=== PATIENT | female | born 1950 | race Caucasian/White ===

== ENCOUNTER → 2018-05-05 | Outpatient (CLI) | payer OTHER | LOC: M.CT 13:39 | DX: Z13.6 Encounter for screening for cardiovascular disorders (principal) ==

== ENCOUNTER → 2018-08-13 | Outpatient (CLI) | payer OTHER | LOC: M.RAD 04:27 | DX: Z12.31 Encounter for screening mammogram for malignant neoplasm of breast (principal) ==

== ENCOUNTER → 2018-08-21 | Outpatient (CLI) | payer OTHER, MEDICARE | LOC: M.ULTRA 09:42 | DX: N63.14 Unspecified lump in the right breast, lower inner quadrant (principal) ==

== ENCOUNTER → 2018-08-28 | Outpatient (CLI) | payer OTHER, MEDICARE ==
--- NOTE | 2018-09-10 10:09 | PATH ---
[address] [address] PATHOLOGY RPT PROCEDURE Name: ZOYA JUÁREZ Room: [facility] ZIGGY Gayle#: [id number] Admission: 08/28/18 Date of : 52 Discharge: Report #: [id number] Path Case #: [id number] [facility] Accession Number: [id number] . 01 Material submitted: . LEFT BREAST 5:30, 6 CM FN . 01 Clinical history: . 0.75 x 0.73 x 0.90 cm, 5:30 6cm FN. . 02 Diagnosis: Left breast, 5:30, 6 cm from nipple, image guided core biopsies: - INFILTRATING DUCTAL ADENOCARCINOMA, INTERMEDIATE GRADE, SPANNING 6 MM (SEE COMMENT). [facility] . 02 Comment: Specimen type: Image guided core biopsy Tumor site: Left breast, 5:30, 6 cm from nipple Tumor quantitation: Approximately 50% of submitted tissues Histologic type: Ductal adenocarcinoma Histologic grade: Intermediate grade (II/III) Tubules, nuclei and mitoses: 2, 3, 2 LVSI: Not identified Microcalcifications: Identified Markers: Breast tumor profile pending Block: A1 . No DCIS or LCIS is identified. Breast tumor profile studies are pending on A1 and will be the subject of an addendum report. Reviewed with Dr. Roland Bhat who agrees with the diagnosis. Karla Gleason (acting [facility] breast navigator) notified at approximately 10:05 on 08/29/2018. (BEBO:pit 08/29/2018) . 02 Addendum: . Special studies report received from [facility], [address] [place] [address], [address], [place], [address], on case [id number], labeled with their number [id number], dated 09/09/2018. . Breast/Prognostic Marker Analysis . Specimen Site: Left Breast, 5:30 (Biopsy), Infiltrating Ductal Adenocarcinoma Specimen ID #: [id number] . ER (Estrogen Receptor) Present/Positive Percent: 90.00% [place] [address] PATHOLOGY RPT PROCEDURE Name: ZOYA JUÁREZ [id number] Admission: 08/28/18 Date of : 52 Discharge: Report #: [id number] Path Case #: [id number] Analysis: Manual Comments: Staining Intensity: Moderate-strong. . GA (Progesterone Receptor) Present/Positive Percent: 70.00% Analysis: Manual Comments: Staining Intensity: Variable (weak-strong). . HER2 Not Over-Expressed Score: 1+ Analysis: Manual . Ki-67 High Proliferation Percent: 40.00% Analysis: Manual . Time to Fixation (Cold Ischemic Time): 10 minutes Duration of Fixation: Not Provided Type of Fixative: 10% Neutral Buffered Formalin . at [employer]. Dakota King M.D. Pathologist . Methodology The HER2 Receptor protein expression is analyzed using the [place] HER2 rabbit monoclonal antibody (clone 4B5). This assay is used for diagnostic determination of the HER2 protein over-expression in paraffin embedded, formalin fixed breast cancer tissue on the [place] Benchmark. The specimen is processed using a polymer detection system. The membrane staining of the tumor is determined either by manual score or image analysis. This antibody is intended for in vitro diagnostic use. The score is reported as per package insert; 0, 1+, 2+, and 3+. This test is used for clinical purposes. . A rabbit monoclonal antibody (clone SP1) that recognized the Estrogen Receptor is used to perform immunohistochemistry on routinely fixed (formalin) paraffin embedded tissue on the [place] Benchmark. The specimen is processed using a polymer detection system. The percentage of stained tumor nuclei is determined either manually or by image analysis. This test is intended for in vitro diagnostic use. This test is used for clinical purposes. . A rabbit monoclonal antibody (clone 1E2) that recognized the Progesterone Receptor is used to perform [place] [address] PATHOLOGY RPT PROCEDURE Name: ZOYA JUÁREZ Room: [facility] ZIGGY Gayle#: [id number] Admission: 10/11/18 Date of : 52 Discharge: Report #: [id number] Path Case #: [id number] (formalin) paraffin embedded tissue on the [place] Benchmark. The specimen is processed using a polymer detection system. The percentage of stained tumor nuclei is determined either manually or by image analysis. This test is intended for in vitro diagnostic use. This test is used for clinical purposes. . A rabbit monoclonal antibody (clone 30-9) that recognized Ki67 is used to perform immunohistochemistry on routinely fixed (formalin) paraffin embedded tissue on the [place] Benchmark. The specimen is processed using a polymer detection system. The percentage of stained tumor nuclei is determined either manually or by image analysis. This test is intended for in vitro diagnostic use. This test is used for clinical purposes. . Intended Use: This antibody is intended for in vitro diagnostic (IVD) use. HER2 (4B5) is a rabbit monoclonal antibody intended for the semi-quantitative detection of HER2 antigen in sections of formalin-fixed, paraffin embedded normal and neoplastic tissue. . This antibody is intended for in vitro diagnostic (IVD) use. Estrogen Receptor (ER) (SP1) is a rabbit monoclonal antibody (IgG) that is intended for the qualitative detection of estrogen receptor (ER) antigen in sections of formalin-fixed, paraffin-embedded tissue. ER is a rabbit monoclonal antibody that recognizes human estrogen receptor alpha. . This antibody is intended for in vitro diagnostic (IVD) use. Progesterone Receptor (GA) (1E2) is a rabbit monoclonal antibody (IgG) that is intended for the qualitative detection of progesterone receptor (GA) antigen in sections of formalin fixed, paraffin embedded tissue. GA is a rabbit monoclonal antibody that recognizes the A and B forms of the human progesterone receptor. . This antibody is intended for in vitro diagnostic (IVD) use. Ki-67 (30-9) is a rabbit monoclonal antibody (IgG) directed against C-terminal portion of Ki-67 antigen. Staining for Ki-67 can be used to aid in assessing the proliferative activity of normal and neoplastic tissue. Ki-67 is a nuclear protein expressed in proliferating cells. During the cell cycle, the Ki-67 antigen is present in the G1, S, G2 and M phase but is absent in the G0 (quiescent phase). . . Disclaimer This Test was performed by [employer]. at [address], [address]. . [facility] [employer] is a business unit of [employer]. a wholly-owned subsidiary of [employer] [place] [address] PATHOLOGY RPT PROCEDURE Name: ZOYA JUÁREZ Room: [facility]#: [id number] Admission: 08/28/18 Date of : 52 Discharge: Report #: [id number] Path Case #: [id number] This assay has not been validated on decalcified tissues. Results should be interpreted with caution if this specimen was decalcified given the likelihood of false negativity on decalcified specimens. . Any image(s) that accompany this report is/are a counter sales representative image(s) only and should not be used to render a diagnosis. . This interpretation is contingent on the specimen and the clinical information received. . For any special tests/stains performed, known positive cells or tissues are tested with each marker and examined to ensure positivity. Positive and negative internal controls, if present, react appropriately. . This analysis is an adjunct to the evaluation of the referring physician and does not represent a final diagnosis. . The immunohistochemistry tests performed at [facility] [employer]. were validated on tissue fixed in 10% neutral buffered formalin. The performance characteristics of the tests performed on tissue processed in other fixatives is not known. . HER2 testing at [facility] is performed in compliance with the 2013 updated ASCO/CAP Clinical Practice Guidelines and Recommendations for HER2 testing in Breast Cancer. If the result is EQUIVOCAL (2+), it must be confirmed by an alternative assay such as FISH or Dual CINDI. REF: Eder ZAAR, et al. Recommendations for human epidermal growth factor receptor 2 testing in breast cancer: [place] Society of Clinical Oncology/College of [place] pathologists Clinical Practice Guideline Update. J Clin Oncol. 2013 Sep 18;31(31):3182-5434. . HER2 and ER/GA ASCO/CAP guidelines require fixation in neutral buffered formalin for a minimum of 6 and a maximum of 72 hours. Fixation times less than 6 hours may not adequately preserve cell proteins. Fixation times longer than 72 hours may cause excess cross-linking of proteins reducing the antigen available for staining. Either scenario can cause reduced staining; hence false negative results are possible and should be considered for these situations if the HER2 IHC score is less than 3+ or ER or GA is negative (no staining or <1% positive). It is recommended that specimens fixed longer than 72 hours with HER2 IHC scores less than 3+ be confirmed by HER2 FISH or Dual CINDI. The time from biopsy/excision to fixation in formalin (cold ischemic time) must be less than 1 hour. Time to fixation (cold ischemic time) greater than 1 hour should be interpreted with caution. HER2 testing, mainly HER2 by FISH, is particularly vulnerable since excessive cold ischemic time results in preferential loss of HER2 probe signals that may lead to false negative results. . SCORE STAINING PATTERN IN TUMOR CELLS [place] [address] PATHOLOGY RPT PROCEDURE Name: ZOYA JUÁREZ Room: [facility]#: [id number] Admission: 08/28/18 Date of : 52 Discharge: Report #: [id number] Path Case #: [id number] 0 No staining observed or incomplete, faint membrane staining in less than or equal to 10% of tumor cells. Negative 1+ Incomplete, faint membrane staining in greater than 10% of tumor cells. Negative 2+ Incomplete and/or weak/moderate circumferential membrane staining in greater than 10% of the invasive tumor cells or complete, circumferential, intense alternative assay staining in less than or equal to 10% of invasive tumor cells. Equivocal* *Must be confirmed by alternative assay (IHC/FISH/Dual CINDI) 3+ Intense, complete membrane staining in greater than 10% of tumor cells. Positive . A complete copy of the report is on file. . Professional and Technical services performed by [email or web address]. at [address] [place] [address]. . ([facility] 09/09/2018) . LBQ/09/09/2018 Addendum Electronically Signed by Gian Crowe MD, Pathologist . 02 Electronically signed: . Gian Crowe MD, Pathologist NPI- [id number] . 01 Gross description: . Received in formalin labeled "Zoya Juárez, left breast 5:30, 6 cm from nipple" is a 2.5 x 0.9 x 0.3 cm aggregate of donovan-yellow lobulated cores of soft tissue. The specimen is submitted entirely in cassettes A1-A3. The specimen is removed from the patient at 0917, placed in formalin at 0927, and removed from formalin at 2150 on August 28, 2018. ([facility] [place]/28/2018) SYC/SYC . 02 Pathologist provided ICD-10: C50.912 . 02 CPT . 431489 Specimen Comment: A courtesy copy of this report has been sent to Specimen Comment: [phone], , . Specimen Comment: Report sent to , DR CHILDS / DR URRUTIA Performed at: 01 [facility] [address] [place] [address] PATHOLOGY RPT PROCEDURE Name: ZOYA JUÁREZ Room: [facility] ZIGGY Gayle#: [id number] Admission: 08/28/18 Date of : 52 Discharge: Report #: [id number] Path Case #: [id number] [place] [id number] [facility] [address], [place], [place] [id number] MD Nakul Sarabia MD Phone: [phone] Performed at: 02 [facility] [address] , [place], [place] [id number] MD Gian Crowe MD Phone: [phone]
== END | disposition home or self-care (01) ==
LOC: M.ULTRA 07:53
DX: C50.912 Malignant neoplasm of unspecified site of left female breast (principal)

== ENCOUNTER → 2018-09-19 | Outpatient (CLI) | payer OTHER, MEDICARE ==
--- NOTE | 2018-09-28 18:26 | CON ---
[address] [address] CONSULTATION Name: NAINKAREEM L Room: [facility]#: [id number] Admission: 09/19/18 Attend Phys: Vinod Leo MD Discharge: Date of : 52 Report #: [id number] THIS REPORT FOR: //name// CC: Vinod Serra MD DATE OF SERVICE: 09/19/2018 [facility] REFERRING PHYSICIANS: Yaneth Oviedo DO; Dr. Kyra Mahmood; Dr. Tejinder Serra. PRIMARY SITE AND HISTOPATHOLOGY: The patient has findings consistent with at least a clinical [id number] left breast cancer. HISTORY OF PRESENT ILLNESS: The patient felt some left axillary lymphadenopathy around July or August and that resolved, and that led her to have a mammogram performed and she had a bilateral mammogram on 08/13/2018, which revealed a spiculated mass in the left breast that measured about 0.9 cm in the retroareolar region near the chest wall. The patient an ultrasound which revealed a mass that measured about 0.58 cm. x 0.53 cm. x 0.5 cm. She had a biopsy of that area on 08/28/2018 and the pathology revealed an intermediate grade infiltrating ductal carcinoma. It was 90% estrogen receptor positive, 70% progesterone receptor positive and HER2/sara negative. She also had an MRI of her breasts as well and the MRI was performed on 09/11/2018 that revealed a 1.1 cm breast cancer at the 5:30 o'clock position. She had a 0.27 cm enhancing mass at the 1-2 o'clock position. She underwent a biopsy at [facility] of the lesion in the 1-2 o'clock position. She denied having any nipple discharge. She denied having any palpable breast masses. She presents to discuss treatment options. PAST MEDICAL HISTORY AND PAST SURGICAL HISTORY: Includes hypertension. She had colon polyps removed. She has hyperlipidemia. She had a cholecystectomy in 2006 and a section in 1976. OBSTETRICAL AND GYNECOLOGIC HISTORY: Menarche at age 14, menopause at age 54 and she is 1, para 1. FAMILY HISTORY: Mother had gastric cancer and the paternal grandmother had pancreatic cancer. SOCIAL HISTORY: The patient is retired. She has 1 daughter who is aged 41. Ethanol: she rarely drinks alcohol containing drinks. Cigarettes: [place] [address] CONSULTATION Name: KAREEM GILLETTE Room: [facility]#: [id number] Admission: 09/19/18 Attend Phys: Vinod Leo MD Discharge: Date of : 52 Report #: [id number] REVIEW OF SYSTEMS: GENERAL: She denied having any fevers, chills, or drenching sweats. SKIN: She denied having any color changes, itching, bruising. LYMPH NODES: She had a palpable left axillary lymph node around July, but that has resolved. ENDOCRINE: She denied having any hot or cold intolerance. HEMATOLOGY/IMMUNOLOGY: She denied having any anemia. 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 HEAD AND NECK: She denied having any headaches or migraines. RESPIRATORY: She denied having any shortness of breath. CARDIOVASCULAR: She denied having any palpitations. GASTROINTESTINAL: She denied having any nausea. NEUROLOGIC: She denied having any focal weakness. PHYSICAL EXAMINATION: With my nurse, Kasandra Gardner, present: VITAL SIGNS: Height 5 feet 5 inches, weight 163.8 pounds, blood pressure 152/68, pulse 67 and oxygen saturation was 96% on room air. GENERAL: The patient was alert, oriented, and in no acute distress. LYMPH NODES: She had no palpable cervical, supraclavicular, or axillary lymphadenopathy. EYES: Pupils were equal, round and reactive to light and accommodation. HEAD, EARS, NOSE AND THROAT: Mouth had no visible lesions. HEART: Had a regular rate and rhythm without murmur. LUNGS: were clear to auscultation. BREASTS: Right breast had no suspicious palpable masses. Left breast had no suspicious palpable masses. ABDOMEN: Not tender. Spleen was not palpable and liver was at the costal margin. EXTREMITIES: Had no clubbing, cyanosis or edema. NEUROLOGIC: Cranial nerves II to XII were intact. Sensation was intact. The patient had 5/5 strength in her extremities. ASSESSMENT AND PLAN: The patient was told that her local treatment options include breast conservation therapy versus mastectomy. This is based on trials such as the NSABP B06 where patients with early breast cancer were randomized between total mastectomy versus lumpectomy alone versus lumpectomy and radiation therapy. At 20 years followup, there was no difference in survival between the 3 treatment groups. The addition of radiation therapy to lumpectomy reduced the local failure rate from 39% to 14%. The risks, benefits, and logistics of radiation therapy were explained to the patient in detail. Right now, she is leaning towards breast conservation therapy if that will be an option for her after her last biopsy results are known. The patient also had the option of an implant versus external beam radiation therapy discussed with her and she is leaning towards breast conservation therapy with [facility] [address] CONSULTATION Name: KAREEM GILLETTE Room: [facility].#: [id number] Admission: 09/19/18 Attend Phys: Vinod Leo MD Discharge: Date of : 52 Report #: [id number] external beam radiation therapy; if that ends up being an option for local treatment, after the most recent biopsy results are known. She was asked to schedule a follow up appointment with me in about 4-6 weeks. Thank you very much for this consult. <ELECTRONICALLY SIGNED> By: Vinod Leo MD 09/28/18 1826 [id number] Leo MD /nt
== END ==
LOC: M.RTH 03:41
DX: Z09 Encounter for follow-up examination after completed treatment for conditions other than malignant neoplasm (principal); E78.5 Hyperlipidemia, unspecified; Z85.3 Personal history of malignant neoplasm of breast

== ENCOUNTER → 2019-01-23 | Outpatient (CLI) | payer OTHER, MEDICARE | LOC: M.RAD 10:05 | DX: C50.512 Malignant neoplasm of lower-outer quadrant of left female breast (principal); Z17.0 Estrogen receptor positive status [ER+] ==

== ENCOUNTER → 2019-03-02 | Outpatient (CLI) | payer OTHER, MEDICARE | LOC: M.RAD 09:00 | DX: M85.89 Other specified disorders of bone density and structure, multiple sites (principal); C50.512 Malignant neoplasm of lower-outer quadrant of left female breast; Z17.0 Estrogen receptor positive status [ER+]; Z78.0 Asymptomatic menopausal state; Z79.811 Long term (current) use of aromatase inhibitors ==

== ENCOUNTER → 2019-07-27 | Outpatient (CLI) | payer OTHER, MEDICARE | LOC: M.RAD 10:40 | DX: C50.512 Malignant neoplasm of lower-outer quadrant of left female breast (principal); Z17.0 Estrogen receptor positive status [ER+] ==

== ENCOUNTER → 2019-08-07 | Outpatient (CLI) | payer OTHER, MEDICARE | LOC: M.RAD 10:38 | DX: M25.561 Pain in right knee (principal); M25.562 Pain in left knee; C50.512 Malignant neoplasm of lower-outer quadrant of left female breast; Z17.0 Estrogen receptor positive status [ER+] ==

== ENCOUNTER → 2020-02-04 | Outpatient (CLI) | payer OTHER, MEDICARE | LOC: M.RAD 08-06 08:49 | DX: C50.512 Malignant neoplasm of lower-outer quadrant of left female breast (principal); N60.12 Diffuse cystic mastopathy of left breast; Z17.0 Estrogen receptor positive status [ER+] ==

== ENCOUNTER → 2020-11-25 | Outpatient (CLI) | payer OTHER | LOC: M.RAD 09:39 | PROVIDERS: ATTEND Radiology Radiation Oncology | DX: Z12.31 Encounter for screening mammogram for malignant neoplasm of breast (principal) ==

== ENCOUNTER → 2021-03-03 | Outpatient (CLI) | payer OTHER | LOC: M.RAD 08:40 | PROVIDERS: ATTEND Internal Medicine Hematology & Oncology | DX: M85.88 Other specified disorders of bone density and structure, other site (principal); Z79.811 Long term (current) use of aromatase inhibitors ==